=== PATIENT | female | born 1955 | race Caucasian/White ===

== ENCOUNTER 2018-10-01 10:39 | Outpatient (CLI) | payer OTHER ==
--- NOTE | 2018-10-01 14:17 | XRAY Report ---
Reason: EFFUSION, LEFT ANKLE Procedure Date: 10/01/2018 Accession Number: [id number] / [id number] Procedure: XR - Ankle 3 View LT CPT Code: FULL RESULT: EXAM: LEFT ANKLE RADIOGRAPHY EXAM DATE: 10/01/2018 10:58 AM. CLINICAL HISTORY: Swelling for one month, history of bilateral edema. No trauma. COMPARISON: None. TECHNIQUE: 3 views. FINDINGS: Bones: Moderate inferior calcaneal spurring, minimal posterior calcaneal spurring. Post-traumatic changes are seen at the medial malleolus, chronic or subacute fracture is suspected, possibly nonunited. Sharper margins are seen at an osseous fragment near the distal tip of the fibula, possible avulsion injury. Joints: Suggestion of ankle joint effusion on the lateral radiograph is noted. No subluxation. The ankle mortise is preserved. Soft Tissues: Soft tissue swelling is seen about the ankle. IMPRESSION: Possibly subacute post-traumatic appearance to the medial malleolus, prior fracture. Subacute to acute appearance of a osseous fragment at the distal tip of the fibula, in the setting of soft tissue swelling concerning for avulsion injury. Suspect tibiotalar joint effusion on the lateral radiograph. RASHARD The call report notification system was initiated by Dr. Jian Bowman at 02:10 PM on 10/01/2018. The above call report findings were discussed with nurse Calle from the office of Dr. Kira Bower by Dr. Jian Bowman at 02:16 PM on 10/01/2018.
--- NOTE | 2018-10-01 14:22 | Ultrasound Report ---
Reason: EFFUSION, LEFT ANKLE Procedure Date: 10/01/2018 Accession Number: [id number] / [id number] Procedure: US - Ext Limited Non Vascular CPT Code: FULL RESULT: EXAM: LEFT UPPER EXTREMITY ULTRASOUND - LIMITED EXAM DATE: 10/01/2018 11:25 AM. CLINICAL HISTORY: Effusion, left ankle. COMPARISON: None. TECHNIQUE: Real-time scanning was performed with static images obtained. FINDINGS: The left tibiotalar joint is imaged by ultrasound. The radiographically suspected joint effusion is not confirmed. No mass is detected in the imaged region. IMPRESSION: No effusion. RADIA
== END 2018-10-01 10:40 | disposition home or self-care (01) ==
LOC: DI 10:39
PROVIDERS: ATTEND Internal Medicine
DX: M25.472 Effusion, left ankle (principal)
CPT/HCPCS: 76882

== ENCOUNTER 2018-11-14 11:16 | Outpatient (CLI) | payer OTHER ==
--- NOTE | 2018-11-15 10:40 | Ultrasound Report ---
Reason: ELEVATED LIVER ENZYMES LEVEL Procedure Date: 11/14/2018 Accession Number: [id number] / [id number] Procedure: US - Abdomen Limited CPT Code: FULL RESULT: EXAM: ABDOMEN LIMITED EXAM DATE: 11/14/2018 12:07 PM INDICATION: ELEVATED LIVER ENZYMES LEVEL. COMPARISONS: None. FINDINGS: Liver: Liver parenchyma is heterogeneous and moderately hyperechoic. No discrete liver masses or intrahepatic bile duct dilation. However, evaluation for masses is limited secondary to the echogenicity. Right liver measures 16.1 cm. Main portal vein flow: Hepatopetal. Gallbladder: Normal. No stones, wall thickening, or sonographic Bower's sign. Biliary System: CBD measures 3 mm. No intrahepatic or extrahepatic ductal dilatation. Pancreas: Normal. Right kidney: 11 cm. No hydronephrosis. Abdominal aorta and IVC: Normal. Other: Study limited by body habitus and bowel gas. IMPRESSION: 1. No liver mass or intrahepatic dilation.Moderately echogenic fatty liver. 2. Normal gallbladder and common bile duct. 3. Normal pancreas. RADIA
== END 2018-11-14 11:17 | disposition home or self-care (01) ==
LOC: DI 11:16
PROVIDERS: ATTEND Internal Medicine
DX: K76.0 Fatty (change of) liver, not elsewhere classified (principal)
CPT/HCPCS: 76705

== ENCOUNTER 2019-12-04 21:51 | Emergency (ER) | payer OTHER ==
--- NOTE | 2019-12-04 23:01 | ED Physician Documentation ---
PD HPI UPPER EXT INJURY - Stated complaint Stated Complaint: RT RINGFINGER LAC - Chief complaint Chief Complaint: Laceration - History obtained from History obtained from: Patient - History of Present Illness Location: Right, Finger Type of injury: Laceration Where injury occurred: Home Timing - onset: Enter time (approximately 17:00), Today Timing - details: Abrupt onset Associated symptoms: No: Weakness, Numbness Contributing factors: No: Anticoagulated Recently seen: Not recently seen - Additonal information Additional information: patient was using a mandoline to slice food this afternoon at approximately 5 PM when her right fourth finger caught the blade of the mandoline, causing a laceration to the fingertip. She presents due to difficulty getting the bleeding to stop since the injury. Does not know when last tetanus booster was. Patient is right hand dominant Review of Systems Skin: reports: Laceration (s) Neurologic: denies: Focal weakness, Numbness PD PAST MEDICAL HISTORY - Past Medical History Past Medical History: Yes Cardiovascular: High cholesterol Respiratory: None Neuro: None Endocrine/Autoimmune: HyPOthyroidism GI: None LOADING SUPERVISOR: None : None HEENT: None Psych: None Musculoskeletal: None Derm: None - Past Surgical History Past Surgical History: Yes /LOADING SUPERVISOR: section, Hysterectomy - Allergies Allergies/Adverse Reactions: Allergies Allergy/AdvReac Type Severity Reaction Status Date / Time No Known Drug Allergies Allergy Verified 12/04/19 22:05 - Social History Does the pt smoke?: No Smoking Status: Never smoker Does the pt drink ETOH?: No Does the pt have substance abuse?: No - Immunizations Immunizations are current?: No Immunizations: TDAP >10years/unknown - POLST Patient has POLST: No PD ED PE NORMAL - Vitals Vital signs reviewed: Yes - General General: Alert and oriented X 3, No acute distress, Well developed/nourished PD ED PE EXPANDED - Extremities ARI UE/Hands Visual: 1 - laceration (avulsion of skin without exposure of underlying soft tissue structures (adipose tissue, connective tissue, or bone); there is slow, steady oozing bleeding from the wound) Results - Vitals Vitals: Vital Signs - 24 hr 12/04/19 12/04/19 12/04/19 22:04 22:46 23:13 Temperature 36.6 C Heart Rate 94 Respiratory 18 17 18 Rate Blood Pressure 184/81 H O2 Saturation 96 12/04/19 12/04/19 23:27 23:29 Temperature Heart Rate 80 Respiratory 17 Rate Blood Pressure 196/86 H O2 Saturation 96 Oxygen O2 Source Room air PD MEDICAL DECISION MAKING - ED course Complexity details: re-evaluated patient, considered differential, d/w patient ED course: gel foam placed on site of injury with overlying gauze and pressure dressing. After subsequent period of ED observation, no bleeding noted into or through this dressing Departure - Departure Disposition: 01 Home, Self Care Clinical Impression: Avulsion of skin of finger Qualifiers: Encounter type: initial encounter Qualified Code(s): S61.209A - Unspecified open wound of unspecified finger without damage to nail, initial encounter Condition: Good Instructions: ED Avulsion Dermal Follow-Up: SILVIA JARVIS ARNP [Primary Care Provider] - (3-4 days for wound check) Discharge Date/Time: 12/04/19 23:54
[2019-12-04] MEDS ORDERED: TETANUS/DIPHTHERIA/PERTUSSIS 0.5 ML SYRINGE IM ONE (23:19)
[2019-12-04] MEDS ORDERED: [UNRECOGNIZED DRUG - SUPPLY] MM STA (23:19)
[2019-12-04 23:30] VITALS: BP 196/86
== END 2019-12-04 23:54 | disposition home or self-care (01) ==
LOC: ED 21:51
DX: S61.204A Unspecified open wound of right ring finger without damage to nail, initial encounter (principal); W27.4XXA Contact with kitchen utensil, initial encounter; Y93.G1 Activity, food preparation and clean up; Y92.009 Unspecified place in unspecified non-institutional (private) residence as the place of occurrence of the external cause; Z23 Encounter for immunization
CPT/HCPCS: 90471; 99282; 99283

== ENCOUNTER 2020-12-08 09:17 | Outpatient (CLI) | payer MEDICARE, OTHER ==
[2020-12-08 15:20] LABS: BASOPHILS # (AUTO) 0.1 10^3/uL (0.0-0.1); BASOPHILS % (AUTO) 0.9 %; EOSINOPHILS # (AUTO) 0.2 10^3/uL (0.0-0.7); EOSINOPHILS % (AUTO) 3.3 %; HCT - HEMATOCRIT 47.8 % (37.0-47.0); HGB - HEMOGLOBIN 14.8 g/dL (12.0-16.0); LYMPHOCYTES # (AUTO) 1.9 10^3/uL (1.5-3.5); LYMPHOCYTES % (AUTO) 27.6 %; MEAN CORPUSCULAR HEMOGLOBIN 28.7 pg (27.0-31.0); MEAN CORPUSCULAR VOLUME 92.8 fL (81.0-99.0); MEAN PLATELET VOLUME 11.6 fL (7.9-10.8); MONOCYTES # (AUTO) 0.6 10^3/uL (0.0-1.0); MONOCYTES % (AUTO) 8.6 %; NEUTROPHILS % (AUTO) 58.9 %; PLT - PLATELET COUNT 229 10^3/uL (130-450); RED BLOOD COUNT 5.15 10^6/uL (4.20-5.40); WHITE BLOOD COUNT 6.8 x10^3/uL (4.8-10.8)
[2020-12-08 15:46] LABS: ALBUMIN 4.2 g/dL (3.2-5.5); ALBUMIN/GLOBULIN RATIO 1.2 (1.0-2.2); BILIRUBIN,TOTAL 0.8 mg/dL (0.2-1.0); CALCIUM 9.1 mg/dL (8.5-10.3); CREATININE 0.8 mg/dL (0.4-1.0); POTASSIUM 3.7 mmol/L (3.5-5.0); TOTAL PROTEIN 7.6 g/dL (6.7-8.2)
[2020-12-08 15:53] LABS: CREATININE,URINE 35.2 mg/dL; MICROALBUM/CREATININE RATIO,UR 690.3 ug/mg (<30.0); MICROALBUMIN,URINE 24.3 mg/dL (0-300.0)
[2020-12-08 15:58] LABS: THYROID STIMULATING HORMONE 2.5 uIU/mL (0.34-5.60)
== END 2020-12-08 09:18 | disposition home or self-care (01) ==
LOC: LAB.S 09:17
PROVIDERS: ATTEND Nurse Practitioner Family
DX: E03.9 Hypothyroidism, unspecified (principal); I10 Essential (primary) hypertension; E11.8 Type 2 diabetes mellitus with unspecified complications
CPT/HCPCS: 36415; 80053; 82043; 82570; 84443; 85025

== ENCOUNTER 2020-12-20 09:49 | Outpatient (CLI) | payer MEDICARE, OTHER ==
[2020-12-20 15:02] LABS: CHOL/HDL RATIO 7.2 (<4.4); CHOLESTEROL 260 mg/dL; HDL CHOLESTEROL 36 mg/dL; LDL CHOLESTEROL,CALCULATED 172 mg/dL; LDL/HDL RATIO 4.8 (<4.4); TRIGLYCERIDES 258 mg/dL; VLDL CHOLESTEROL 52 mg/dL
[2020-12-20 20:18] LABS: ESTIMATED AVERAGE GLUCOSE 169 mg/dL (70-100); HEMOGLOBIN A1c% 7.5 % (4.27-6.07)
== END 2020-12-20 09:50 | disposition home or self-care (01) ==
LOC: LAB.S 09:49
PROVIDERS: ATTEND Nurse Practitioner Family
DX: E78.2 Mixed hyperlipidemia (principal); E11.8 Type 2 diabetes mellitus with unspecified complications
CPT/HCPCS: 36415; 80061; 83036; 83721

== ENCOUNTER 2022-02-02 10:13 | Outpatient (CLI) | payer MEDICARE, OTHER ==
--- NOTE | 2022-02-02 12:15 | XRAY Report ---
PROCEDURE: Foot 3 View RT INDICATIONS: RT FOOT PAIN TECHNIQUE: 3 views of the foot were acquired. COMPARISON: None FINDINGS: Bones: No fractures or dislocations. No suspicious bony lesions. Scattered IP degenerative narrowi ng is present. Prominent calcaneal spur is present. Soft tissues: No tibiotalar joint effusion. Achilles tendon appears normal. IMPRESSION: IP arthritic changes as above. Reviewed by: Nicole Billy MD on 02/02/2022 12:14 PM PDT Approved by: Nicole Billy MD on 02/02/2022 12:14 PM PDT Station ID: [id number]
== END 2022-02-02 10:14 | disposition home or self-care (01) ==
LOC: DI 10:13
PROVIDERS: ATTEND Podiatrist
DX: M19.071 Primary osteoarthritis, right ankle and foot (principal); M77.31 Calcaneal spur, right foot

== ENCOUNTER 2022-03-03 17:25 | Outpatient (CLI) | payer MEDICARE, OTHER ==
--- NOTE | 2022-03-06 09:08 | MRI Report ---
PROCEDURE: FOOT WO - RT INDICATIONS: RIGHT FOOT PAIN TECHNIQUE: Noncontrast sagittal T1 spin echo and T2 fast spin echo with fat saturation, long-axis T1 spin echo a nd STIR, short-axis proton density fast spin echo and T2 fast spin echo with fat saturation through t he forefoot. COMPARISON: Right foot radiographs 02/02/2022 FINDINGS: Image quality: Images are mildly degraded by patient motion on multiple pulse sequences. Diagnostic information is obtained. Bones and joints: There is a minimally displaced transverse fracture at the base of the fifth proxim al phalanx without definite intra-articular extension. Minimal surrounding osseous edema is seen. The re may be partial cortication along the fracture margins. Osseous edema is seen within the fourth dis darrell phalanx that may be related to a an additional nondisplaced fracture versus contusion. The remain ing osseous structures are normal in signal intensity. Mild degenerative changes are seen at the firs t metatarsophalangeal joint. Mild scattered degenerative changes are seen at the interphalangeal join ts of the toes. The sesamoid bones appear in expected positions, without internal edema. Soft tissues: Mild nonspecific subcutaneous soft tissue edema is seen at the dorsum of the foot. The visualized plantar foot muscles demonstrate normal signal and bulk. Visualized flexor and extensor t endons appear intact, without tenosynovitis. Sagittal images demonstrate no evidence for plantar rajeev te tears. IMPRESSION: 1.Minimally displaced transverse fracture at the base of the fifth proximal phalanx with trace surrou nding edema, which is likely subacute or chronic in age. 2.Osseous edema within the fourth distal phalanx secondary to trabecular bone injury or a nondisplace d fracture. Reviewed by: Anthony Rodriguez MD on 03/06/2022 9:07 AM [facility] Approved by: Anthony Rodriguez MD on 03/06/2022 9:07 AM PST Station ID: [id number]
== END 2022-03-03 17:26 | disposition home or self-care (01) ==
LOC: DI 17:25
PROVIDERS: ATTEND Podiatrist
DX: S92.511D Displaced fracture of proximal phalanx of right lesser toe(s), subsequent encounter for fracture with routine healing (principal)

== ENCOUNTER 2022-09-19 15:16 | Outpatient (CLI) | payer MEDICARE, OTHER ==
--- NOTE | 2022-09-19 16:42 | DEXA Report ---
PROCEDURE: Dexa Spine and/or Hip INDICATIONS: POST MENOPAUSAL TECHNIQUE: Dual energy x-ray absorptiometry (DXA) was performed on a [employer] System. Regions measur ed are the AP Spine, femoral neck, and if needed forearm. COMPARISON: None. FINDINGS: Lumbar Spine: Bone Mineral Density 1.078 g/cm/cm,T score -0.8. Left Femoral Neck: Bone Mineral Density 0.769 g/cm/cm, T score -1.9. Left Hip: Bone Mineral Density 0.978 g/cm/cm,T score -0.2. (T score greater or equal to -1.0: NORMAL) (T score from -1.1 to -2.4: OSTEOPENIA) (T score less than or equal to -2.5 to: OSTEOPOROSIS) Impression: By WHO criteria, this patient has low bone density (osteopenia). Patients with diagnosis of osteoporosis or osteopenia should have regular bone mineral density assess ment. For those eligible for Medicare, routine testing is allowed once every 2 years. Testing frequ ency can be increased for patients who have rapidly progressing disease or for those who are receivin g medical therapy to restore bone mass. Reviewed by: Anthony Rodriguez MD on 09/19/2022 4:41 PM PDT Approved by: Anthony Rodriguez MD on 09/19/2022 4:41 PM PDT Station ID: [id number]
== END 2022-09-19 15:17 | disposition home or self-care (01) ==
LOC: DI 15:16
PROVIDERS: ATTEND Nurse Practitioner Family
DX: Z78.0 Asymptomatic menopausal state (principal); M85.80 Other specified disorders of bone density and structure, unspecified site

== ENCOUNTER 2023-09-10 17:08 | Outpatient (CLI) | payer MEDICARE, OTHER ==
--- NOTE | 2023-09-11 09:19 | XRAY Report ---
PROCEDURE: Shoulder 2+V LT INDICATIONS: LEFT SHOULDER PAIN TECHNIQUE: 3 views of the shoulder were acquired. COMPARISON: No relevant comparisons at time of dictation. FINDINGS: Bones: No fractures or dislocations. No suspicious bony lesions. Visualized ribs appear intact. Acromioclavicular joint space narrowing with osteophytosis. Soft tissues: No suspicious soft tissue calcifications. The visualized lungs are within normal limi ts. IMPRESSION: No acute bony abnormality. Moderate acromioclavicular osteoarthritis. Reviewed by: Luis Tafoya MD on 09/11/2023 9:17 AM PDT Approved by: Luis Tafoya MD on 09/11/2023 9:17 AM PDT Station ID: [id number]
== END 2023-09-10 17:09 | disposition home or self-care (01) ==
LOC: DI.S 17:08
PROVIDERS: ATTEND Nurse Practitioner Family
DX: M19.012 Primary osteoarthritis, left shoulder (principal)

== ENCOUNTER 2023-12-13 14:41 | Outpatient (CLI) | payer MEDICARE, OTHER ==
--- NOTE | 2023-12-13 15:56 | XRAY Report ---
PROCEDURE: Hips w/Pelvis 2-3V BL INDICATIONS: BILATERAL HIP PAIN TECHNIQUE: 3 view(s) of the hip were acquired. COMPARISON: 06/27/2013 FINDINGS: Bones: No fractures or dislocations. Moderate bilateral hip degeneration. No suspicious bony lesion s. The visualized pelvic ring appears intact. Soft tissues: No suspicious soft tissue calcifications or masses. IMPRESSION: No acute bony abnormality. Moderate bilateral hip joint degeneration. Reviewed by: Austin Klein MD on 12/13/2023 3:55 PM PDT Approved by: Austin Klein MD on 12/13/2023 3:55 PM PDT Station ID: [id number]
== END 2023-12-13 14:42 | disposition home or self-care (01) ==
LOC: DI.S 14:41
PROVIDERS: ATTEND Nurse Practitioner Family
DX: M16.0 Bilateral primary osteoarthritis of hip (principal)